=== PATIENT | male | born 1950 | race Caucasian/White ===

== ENCOUNTER 2017-12-11 07:23 | Outpatient (CLI) | payer OTHER ==
[~2017-12-11 07:23] MED LIST: AMLODIPINE BESYL5 MG; ATORVASTATIN CA10 MG; GLIMEPIRIDE4 MG; GLUMETZA1000 MG; JANUVIA100 MG; PNEU16DI2; TOPROL XL50 M1 PO
== END 2017-12-11 08:02 | disposition home or self-care (01) ==
LOC: NUCLEAR 07:23
DX: R91.1 Solitary pulmonary nodule (principal)
CPT/HCPCS: 78816; A9552

== ENCOUNTER 2018-01-13 14:00 | Outpatient (CLI) | payer OTHER | END 2018-01-13 17:00 | disposition home or self-care (01) | LOC: MRI 14:00 | DX: M54.5 Low back pain (principal) | CPT/HCPCS: 72148 ==

== ENCOUNTER 2018-01-13 14:03 | Outpatient (CLI) | payer OTHER | END 2018-01-13 17:00 | disposition home or self-care (01) | LOC: RAD 14:03 | DX: M54.5 Low back pain (principal); M25.561 Pain in right knee; M25.562 Pain in left knee; M25.551 Pain in right hip; M25.552 Pain in left hip ==

== ENCOUNTER → 2018-04-30 | Outpatient (CLI) | payer OTHER | END | disposition home or self-care (01) | LOC: RAD 15:01 | DX: M19.042 Primary osteoarthritis, left hand (principal) ==

== ENCOUNTER 2018-05-06 14:13 | Outpatient (CLI) | payer OTHER | END 2018-05-06 14:24 | disposition home or self-care (01) | LOC: MRI 14:13 | DX: M25.511 Pain in right shoulder (principal) | CPT/HCPCS: 73218 ==

== ENCOUNTER 2023-12-10 13:19 | Outpatient (CLI) | payer OTHER | END 2023-12-10 13:30 | disposition home or self-care (01) | LOC: TOM 13:19 | PROVIDERS: ATTEND Internal Medicine | DX: M25.561 Pain in right knee (principal) ==

== ENCOUNTER 2024-06-22 13:21 | Outpatient (CLI) | payer OTHER | END 2024-06-22 13:26 | disposition home or self-care (01) | LOC: RAD 13:21 | PROVIDERS: ATTEND Internal Medicine | DX: S83.92XA Sprain of unspecified site of left knee, initial encounter (principal) ==